=== PATIENT | male | born 1965 | race Caucasian/White ===

== ENCOUNTER 2017-10-18 11:41 | Emergency (ER) | payer OTHER ==
[2017-10-18 11:49] VITALS: BP 120/79
--- NOTE | 2017-10-18 11:54 | ER Document Report ---
HPI - HPI Patient complains to provider of: medial right knee pain Onset: Other Onset/Duration: Gradual - 3 days Pain Level: 3 Context: 52-year-old male complaining of pain medial right knee and distal thigh for 3 days. He is visiting this area. He knows he has varicose veins in this leg. Associated Symptoms: None Exacerbated by: Movement Relieved by: Denies Similar symptoms previously: No Recently seen / treated by doctor: No - ROS ROS below otherwise negative: Yes Systems Reviewed and Negative: Yes All other systems reviewed and negative Past Medical History - General Information source: Patient - Social History Smoking Status: Unknown if Ever Smoked Frequency of alcohol use: None Drug Abuse: None Lives with: Family Family History: Reviewed & Not Pertinent - Medical History Medical History: Negative Surgical Hx: Negative Vertical Provider Document - CONSTITUTIONAL Agree With Documented VS: Yes Exam Limitations: No Limitations - INFECTION CONTROL TRAVEL OUTSIDE OF THE [place] IN LAST 30 DAYS: No - NECK Neck: Supple - MUSCULOSKELETAL/EXTREMETIES Musculoskeletal/Extremeties: MAEW, FROM, Tender - tender varicosities with warmth to the vein bundle medial right knee to distal medial right thigh - NEURO Level of Consciousness: Awake, Alert Motor/Sensory: No Motor Deficit - DERM Integumentary: No Rash Course - Re-evaluation Re-evalutation: 10/18/17 13:58 The preliminary report is superficial vein thrombosis the patient wants to leave before the final. He did do some reading while he was waiting for the ultrasound and knows that heat elevation and Motrin as the best treatment. I have his phone number and will call him if there is any discrepancy with the final report from Dr. Allie Peck 10/18/17 17:26 Final report is superficial phlebitis no DVT per Allie Peck over the phone. - Vital Signs Vital signs: Temp Pulse Resp BP Pulse Ox 98.5 F 100 22 H 120/79 97 10/18/17 11:47 10/18/17 11:47 10/18/17 11:47 10/18/17 11:47 10/18/17 11:47 Discharge - Discharge Clinical Impression: Right leg superficial vein thrombosis Condition: Good Disposition: HOME, SELF-CARE Instructions: Ibuprofen (General) ([facility]), Superficial Phlebitis ([facility]), Varicose Veins ([facility]), Warm Packs ([facility]) Additional Instructions: Compressive stockings will help with the varicose veins Warm compress Motrin See your doctor when you get home for follow-up Return to the emergency room any concerns while you are visiting here Prescriptions: Ibuprofen [Motrin 800 mg Tablet] 800 mg PO Q8HP PRN #30 tablet PRN Reason: Referrals: LOCAL[facility],NO [Primary Care Provider] - Follow up as needed
--- NOTE | 2017-10-20 10:38 | XCELERA REPORT ---
[address] [address] Lower Extremity Venous Evaluation Name: SIMA SWANSON Age: 52 yrs Gender: Male : 1965 Patient Status: Emergency Patient Location: ER Study Date: 10/18/2017 01:08 PM Procedure: A unilateral duplex scan of the right lower extremity veins was performed. The evaluation included responses to compression and other maneuvers. The contralateral femoral vein was also evaluated. Reason For Study: right leg vein tenderness Ordering Physician: CLOVER MA Performed By: Iván Castillo Right Sided Venous Evaluation Enlarged, echolucent medial thigh varicose veins. Otherwise normal vessel filling wall to wall, compression and augmentation as well as Colour flow down to the infrageniculate veins. Interpretation Summary No duplex evidence of DVT or obstruction in the right lower extremity . Superficial phlebitis in a Varicose vein noted. : CLOVER MA > Luis Enrique Peck
== END 2017-10-18 14:08 | disposition home or self-care (01) ==
LOC: ER 11:41
DX: I82.401 Acute embolism and thrombosis of unspecified deep veins of right lower extremity (principal); I83.811 Varicose veins of right lower extremity with pain
CPT/HCPCS: 93971; 99284